=== PATIENT | male | born 1950 | race Caucasian/White ===

== ENCOUNTER 2021-04-13 10:24 | Emergency (ER) | payer MEDICARE ==
[~2021-04-13] VITALS: Ht 165.1 cm; Wt 63.5 kg
[2021-04-13] MEDS ORDERED: ASPIRIN81 MG PO (10:38)
[2021-04-13] MEDS ORDERED: METFORMIN HCL1000 M1 PO (10:38)
[2021-04-13] MEDS ORDERED: MULTI VITAMIN1 EACH PO (10:38)
[2021-04-13] MEDS ORDERED: ZESTORETIC 20-1 EACH PO (10:38)
--- NOTE | 2021-04-13 12:48 | EKG ---
[facility] [address] [place], [place] [address] Signed Normal sinus rhythm Left axis deviation Abnormal ECG No previous ECGs available Confirmed by DONNA ERVIN DO ([id number]) on 04/13/2021 12:48:27 PM Electronically Signed By: DONNA ERVIN DO 04/13/21 1248 PATIENT NAME: ECTORLENI JANIS Electrocardiogram DATE OF : 50 PHYSICIAN: DONNA ERVIN DO REPORT #: [id number] REPORT IS CONFIDENTIAL AND NOT TO BE RELEASED WITHOUT AUTHORIZATION
--- NOTE | 2021-04-13 21:57 | EKG ---
[facility] [address] [facility] [place], [place] [address] Signed Sinus bradycardia Left axis deviation Abnormal ECG When compared with ECG of 13-APR-2021 10:31, No significant change was found Confirmed by JUANITO NAJERA MD ([id number]) on 04/13/2021 9:57:08 PM Electronically Signed By: JUANITO NAJERA MD 04/13/217 PATIENT NAME: LENI BARNEY Electrocardiogram DATE OF : 50 PHYSICIAN: JUANITO NAJERA MD REPORT #: [id number] REPORT IS CONFIDENTIAL AND NOT TO BE RELEASED WITHOUT AUTHORIZATION
== END 2021-04-13 15:43 | disposition home or self-care (01) ==
LOC: ED 10:24
DX: R41.3 Other amnesia (principal); R77.8 Other specified abnormalities of plasma proteins; Z88.2 Allergy status to sulfonamides; Z79.899 Other long term (current) drug therapy; Z79.84 Long term (current) use of oral hypoglycemic drugs; Z79.82 Long term (current) use of aspirin
CPT/HCPCS: 70450; 71045; 80053; 84484; 85025; 93005; 93010; 99285-25

== ENCOUNTER 2022-09-18 12:00 | Emergency (ER) | payer OTHER, MEDICARE ==
[~2022-09-18] VITALS: Ht 165.1 cm; Wt 68.0 kg
[~2022-09-18 12:00] MED LIST: ASPIRIN81 MG PO; METFORMIN HCL1000 M1 PO; MULTI VITAMIN1 EACH PO; ZESTORETIC 20-1 EACH PO
--- OUTSIDE RECORDS SUMMARY | 2022-09-18 12:08 | XMS ---
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 - 2 Visits in 30 Days CARE PROVIDERS There are no care providers on record at this time. Bill has no Care Guidelines for this patient. Freddie [facility] (12 MO.) [facility] [address] [place] TOTAL 4 NOTE: Visits indicate total known visits. ED/C VISIT TRACKING (12 MO.) 09/18/2022 12:00 [facility] [place] TYPE: Emergency COMPLAINT: - SKIN PROBLEM [facility] DIAGNOSES: - Abscess - poss abscess on back of head - Cutaneous abscess, unspecified 04/26/2022 15:[facility] DIAGNOSES: - Fatigue - Atherosclerosis of coronary artery bypass graft(s), unspecified, with unstable angina pectoris - Essential (primary) hypertension - Chronic kidney disease, unspecified - Disorder of kidney and ureter, unspecified - Other specified abnormalities of plasma proteins - Transient alteration of awareness - falls balance and gait issues - Hypokalemia - Acute kidney failure, unspecified - Type 2 diabetes mellitus with other circulatory complications - Weakness 04/12/2022 13:48 [facility] DIAGNOSES: - dizy/poss seizure/ - Possible Seizure - Type 2 diabetes mellitus with other circulatory complications - Acute kidney failure, unspecified - Cannabis use, unspecified, uncomplicated - Other psychoactive substance abuse, uncomplicated - Atherosclerosis of coronary artery bypass graft(s), unspecified, with unstable angina pectoris - Other hyperlipidemia - Unspecified convulsions - Essential (primary) hypertension INPATIENT VISIT TRACKING (12 MO.) 04/26/2022 15:07 [facility] [place] TYPE: Medical Surgical DIAGNOSES: - Disorder of kidney and ureter, unspecified - Weakness - Type 2 diabetes mellitus with other circulatory complications - Transient alteration of awareness - Essential (primary) hypertension - Chronic viral hepatitis B without delta-agent - Other specified abnormalities of plasma proteins - Hypokalemia - Chronic kidney disease, unspecified - Atherosclerosis of coronary artery bypass graft(s), unspecified, with unstable angina pectoris - Acute kidney failure, unspecified 04/12/2022 13:48 [facility] [place] TYPE: Surgical Services DIAGNOSES: - Cannabis use, unspecified, uncomplicated - Acute kidney failure, unspecified - Atherosclerosis of coronary artery bypass graft(s), unspecified, with unstable angina pectoris - Unspecified convulsions - Encephalopathy, unspecified - Other hyperlipidemia - Other psychoactive substance abuse, uncomplicated - Transient alteration of awareness - Essential (primary) hypertension - Type 2 diabetes mellitus with other circulatory complications [email or web address]
[2022-09-18] MEDS ORDERED: DOXYCYCLINE HY100 MG PO (12:12)
[2022-09-18] MEDS ORDERED: AMOX TR-K CLV1 EAC1 PO (12:12)
== END 2022-09-18 16:04 | disposition home or self-care (01) ==
LOC: ED 12:00
PROC: 0H90XZZ Drainage of Scalp Skin, External Approach (ICD-10-PCS; principal; 2022-09-18)
DX: L02.811 Cutaneous abscess of head [any part, except face] (principal); I10 Essential (primary) hypertension; E11.9 Type 2 diabetes mellitus without complications; F03.90 Unspecified dementia, unspecified severity, without behavioral disturbance, psychotic disturbance, mood disturbance, and anxiety; F17.200 Nicotine dependence, unspecified, uncomplicated; Z86.73 Personal history of transient ischemic attack (TIA), and cerebral infarction without residual deficits; Z88.2 Allergy status to sulfonamides; Z79.899 Other long term (current) drug therapy; Z79.82 Long term (current) use of aspirin
CPT/HCPCS: 10060; 36415; 85025; 87205; 99283-25

== ENCOUNTER 2022-09-21 15:43 | Emergency (ER) | payer OTHER, MEDICARE ==
[~2022-09-21] VITALS: Ht 165.1 cm; Wt 68.0 kg
[~2022-09-21 15:43] MED LIST changes: +AMOX TR-K CLV1 EAC1 PO; +DOXYCYCLINE HY100 MG PO
--- OUTSIDE RECORDS SUMMARY | 2022-09-21 15:52 | XMS ---
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 Bill has no Care Guidelines for this patient. [facility]12 MO[address] [facility] [address] [facility] NOTE: Visits indicate total known visits. ED/C VISIT TRACKING (12 MO.) [facility]22 15[facility] COMPLAINT: - NECK, SHOULDER PAIN, DIZZY, WOUND PAIN 09/18/2022 12:00 [facility] TYPE: Emergency COMPLAINT: - SKIN PROBLEM 09/16/2022 12:[facility] DIAGNOSES: - poss abscess on back of head - Cutaneous abscess, unspecified - Abscess 04/26/2022 15:[facility] DIAGNOSES: - Transient alteration of awareness - falls balance and gait issues - Hypokalemia - Acute kidney failure, unspecified - Type 2 diabetes mellitus with other circulatory complications - Weakness - Fatigue - Atherosclerosis of coronary artery bypass graft(s), unspecified, with unstable angina pectoris - Essential (primary) hypertension - Chronic kidney disease, unspecified - Disorder of kidney and ureter, unspecified - Other specified abnormalities of plasma proteins 04/12/2022 13:48 [facility] [place] TYPE: Emergency DIAGNOSES: - Other psychoactive substance abuse, uncomplicated - Atherosclerosis of coronary artery bypass graft(s), unspecified, with unstable angina pectoris - Other hyperlipidemia - Unspecified convulsions - Essential (primary) hypertension - dizy/poss seizure/ - Possible Seizure - Type 2 diabetes mellitus with other circulatory complications - Acute kidney failure, unspecified - Cannabis use, unspecified, uncomplicated INPATIENT VISIT TRACKING (12 MO.) 04/26/2022 15[facility]07 [facility] DIAGNOSES: - Other specified abnormalities of plasma proteins - Hypokalemia - Chronic kidney disease, unspecified - Atherosclerosis of coronary artery bypass graft(s), unspecified, with unstable angina pectoris - Acute kidney failure, unspecified - Disorder of kidney and ureter, unspecified - Weakness - Type 2 diabetes mellitus with other circulatory complications - Transient alteration of awareness - Essential (primary) hypertension - Chronic viral hepatitis B 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 DIAGNOSES: - Other hyperlipidemia - Other psychoactive substance abuse, uncomplicated - Transient alteration of awareness - Essential (primary) hypertension - Type 2 diabetes mellitus with other circulatory complications - Cannabis use, unspecified, uncomplicated - Acute kidney failure, unspecified - Atherosclerosis of coronary artery bypass graft(s), unspecified, with unstable angina pectoris - Unspecified convulsions - Encephalopathy, unspecified [email or web address]
[2022-09-21] MEDS ORDERED: AMLODIPINE BESYL5 MG PO (15:59)
[2022-09-21] MEDS ORDERED: CLOPIDOGREL75 MG PO (16:00)
== END 2022-09-21 18:25 | disposition home or self-care (01) ==
LOC: ED 15:43
PROC: 0H90XZZ Drainage of Scalp Skin, External Approach (ICD-10-PCS; principal; 2022-09-21)
DX: S40.011A Contusion of right shoulder, initial encounter (principal); L02.811 Cutaneous abscess of head [any part, except face]; I10 Essential (primary) hypertension; E11.9 Type 2 diabetes mellitus without complications; F17.200 Nicotine dependence, unspecified, uncomplicated; Z86.73 Personal history of transient ischemic attack (TIA), and cerebral infarction without residual deficits; Z88.2 Allergy status to sulfonamides; Z79.899 Other long term (current) drug therapy; Z79.82 Long term (current) use of aspirin; W19.XXXA Unspecified fall, initial encounter
CPT/HCPCS: 10060; 73030; 99283-25